=== PATIENT | male | born 1995 | race Caucasian/White ===

== ENCOUNTER 2023-07-20 17:11 | Emergency (ER) | payer OTHER, SELFPAY ==
[2023-07-20] VITALS (7 sets, daily range): BP systolic 118–141; BP diastolic 79–102; PULSE 91–106; RESP 8–24; TEMP 36.8; O2SAT 95–98; BMI 31.7
--- NOTE | 2023-07-20 17:25 | DI.RAD.S_ITS ---
PROCEDURE: XR CHEST 1V INDICATIONS: chest pain TECHNIQUE: One view of the chest was acquired. COMPARISON: None. FINDINGS: Surgical changes and devices: None. Lungs and pleura: Lungs are clear. No pleural effusions or pneumothorax. Mediastinum: Mediastinal contours appear normal. Heart size is normal. Bones and chest wall: No suspicious bony lesions. Overlying soft tissues appear unremarkable. IMPRESSION: No acute cardiopulmonary abnormality is seen. Dictated by: Emily Conde M.D. on 07/20/2023 at 18:27 Approved by: Emily Conde M.D. on 07/20/2023 at 18:27
[2023-07-20] MEDS: ASPIRIN 81 MG CHEW TAB 324 MG PO (17:37)
[2023-07-20 17:43] LABS: Add Manual Diff / Slide Review NO; Basophils Absolute Auto 100 /uL (0-100); Basophils Percent Auto 0.6 % (0-2); Eosinophils Absolute Auto 200 /uL (0-450); Eosinophils Percent Auto 2.1 % (2-4); Hematocrit 44.8 % (41-53); Hemoglobin 15.2 g/dL (13.5-17.5); Lymphocytes Absolute Auto 3500 /uL (1100-4500); Lymphocytes Percent Auto 30.6 % (25-40); Mean Corpuscular HGB Conc 33.9 % (30-36); Mean Corpuscular Hemoglobin 30.5 PG (26-34); Mean Corpuscular Volume 89.9 fL (80-100); Monocytes Absolute Auto 1100 /uL (0-900); Monocytes Percent Auto 9.4 % (3-14); Neutrophils Absolute Auto 6600 /uL (1500-7000); Neutrophils Percent Auto 57.3 % (50-75); Platelet Count 294 X10^3/uL (150-400); Red Blood Cell Count 4.98 X10^6/uL (4.5-5.9); Red Cell Distribution Width 13.6 % (11.6-14.8); White Blood Cell Count 11.5 X10^3/uL (4.5-11.0)
[2023-07-20 17:53] LABS: PTT Partial Thromboplastin Tim 35 SECONDS (25.1-36.5)
[2023-07-20 17:56] LABS: Alanine Aminotransferase 51 IU/L (<50); Albumin 4.7 g/dL (3.5-5.0); Albumin Globulin Ratio 1.3 (1.0-2.8); Alkaline Phosphatase 99 U/L (38-126); Aspartate Aminotransferase 39 IU/L (17-59); BUN Creatinine Ratio 14.5 (6-22); Bilirubin Total 0.6 mg/dL (0.2-1.3); Blood Urea Nitrogen 12 mg/dL (9-20); Calcium 9.5 mg/dL (8.4-10.2); Carbon Dioxide 31 mmol/L (22-32); Chloride 103 mmol/L (98-107); Creatine Kinase 79 U/L (55-170); Estimated Glomerular Filt Rate > 60 mL/min (>60); Globulin 3.5 g/dL (1.7-4.1); Glucose 106 mg/dL (70-100); HEMOLYSIS < 15 (0-50); Lipase 63 U/L (23-300); Magnesium 1.9 mg/dL (1.6-2.3); Potassium 3.9 mmol/L (3.4-5.1); Sodium 140 mmol/L (137-145); Total Protein 8.2 g/dL (6.3-8.2)
[2023-07-20 18:07] LABS: Troponin I < 0.012 ng/mL (0.01-0.034)
--- NOTE | 2023-07-20 19:09 | ED_ITS ---
HPI - Arrhythmia/Palpitations General Chief Complaint: Arrhythmia/Palpitations Stated Complaint: Heart palpitations/High BP Time Seen by Provider: 07/20/23 17:50 Source: patient Mode of arrival: Ambulatory History of Present Illness HPI narrative: Patient is a 28-year-old healthy male who presents today with heart palpitations. He says it happens both at rest and while standing. He has not been dizzy lightheaded or passed out. He denies any sort of shortness of breath. He feels little bit of tightness in his chest. No fever chills or cough. He reports that he drinks 1-2 cups of coffee daily and then sips a [place] throughout the day. He has been doing this a long time. He is currently sinus rhythm on the monitor. Related Data Allergies Allergy/AdvReac Type Severity Reaction Status Date / Time No Known Drug Allergies Allergy Verified 07/20/23 17:21 Patient History Social History Smoking Status: Current every day smoker Smoking Status: Current every day smoker tobacco type: cigarettes alcohol intake frequency: a few times a week Alcohol type: beer, wine and hard liquor Substance Use Type: does not use Exam Initial Vital Signs Initial Vital Signs: Vital Signs Temperature 98.3 F 07/20/23 17:21 Pulse Rate 106 H 07/20/23 17:21 Respiratory Rate 18 07/20/23 17:21 Blood Pressure 133/100 H 07/20/23 17:21 Pulse Oximetry 98 07/20/23 17:21 Oxygen Delivery Method Room Air 07/20/23 17:21 GENERAL: Alert pleasant well-appearing 28-year-old male and in no acute distress. HEENT: Head atraumatic,EOMI, pupils reactive, face symmetric, moist mucous membranes CARDIOVASCULAR: Regular rate and rhythm without murmurs, rubs or gallops. RESPIRATORY: Breath sounds equal bilaterally, no wheezes rales or rhonchi. ABDOMEN: Soft, nontender. Normoactive bowel sounds all 4 quadrants. No guarding or rebound. EXTREMITIES: Normal range of motion, no clubbing or edema. Neurovascularly intact NEUROLOGICAL: Alert and oriented x4.Normal gait and speech. SKIN: Warm, dry, no laceration, no petechiae, no rashes or lesions. Scores HEART Score Heart Score history: Slightly Suspicious Heart Score EKG: Normal Heart Score Age: < 45 years old Heart Score risk factors: No known risk factors Heart Score troponin: < or = to normal limit Heart Score Total: 0 Course Orders Ordered: ED Orders 07/20/23 17:25 XR chest 1V Stat EKG-12 Lead Stat 07/20/23 17:35 Complete Blood Count AUTO DIFF Stat Comprehensive Metabolic Panel Stat Lipase Stat Magnesium Stat PTT Partial Thromboplastin Tomas Stat Prothrombin Time INR Stat Troponin & CK Cardiac Panel Stat 07/20/23 19:19 EKG-12 Lead Stat Discontinued Medications Aspirin (Aspirin 81 Mg Chew Tab) 324 mg PO NOW ONE Stop: 07/20/23 17:26 Last Admin: 07/20/23 17:37 Dose: 324 mg Documented By: HELENA Vital Signs Vital signs: Vital Signs - 8 hr 07/20/23 18:30 07/20/23 18:30 07/20/23 19:00 Pulse Rate 92 H 91 H Respiratory Rate 8 L 14 Blood Pressure 118/81 Pulse Oximetry 95 95 07/20/23 19:00 Pulse Rate Respiratory Rate Blood Pressure 118/79 Pulse Oximetry MDM - Arrhythmia/Palpitations Lab Data 07/20/23 17:35 07/20/23 17:35 Labs: Lab Results 07/20/23 Range/Units 17:35 WBC 11.5 H (4.5-11.0) X10^3/uL RBC 4.98 (4.5-5.9) X10^6/uL Hgb 15.2 (13.5-17.5) g/dL Hct 44.8 (41-53) % MCV 89.9 (80-100) fL MCH 30.5 (26-34) PG MCHC 33.9 (30-36) % RDW 13.6 (11.6-14.8) % Plt Count 294 (150-400) X10^3/uL Neut % (Auto) 57.3 (50-75) % Lymph % (Auto) 30.6 (25-40) % [place] % (Auto) 9.4 (3-14) % Eos % (Auto) 2.1 (2-4) % Baso % (Auto) 0.6 (0-2) % Neut # (Auto) 6600 (3732-5066) /uL Lymph # (Auto) 3500 (9281-8942) /uL [place] # (Auto) 1100 H (0-900) /uL Eos # (Auto) 200 (0-450) /uL Baso # (Auto) 100 (0-100) /uL PT 11.0 (9.4-12.5) SECONDS INR 1.0 (0.9-1.3) APTT 35 (25.1-36.5) SECONDS Sodium 140 (137-145) mmol/L Potassium 3.9 (3.4-5.1) mmol/L Chloride 103 (98-107) mmol/L Carbon Dioxide 31 (22-32) mmol/L BUN 12 (9-20) mg/dL Creatinine 0.83 (0.66-1.25) mg/dL Estimated GFR > 60 (>60) mL/min BUN/Creatinine Ratio 14.5 (6-22) Glucose 106 H (70-100) mg/dL Calcium 9.5 (8.4-10.2) mg/dL Magnesium 1.9 (1.6-2.3) mg/dL Total Bilirubin 0.6 (0.2-1.3) mg/dL AST 39 (17-59) IU/L ALT 51 H (<50) IU/L Alkaline Phosphatase 99 (38-126) U/L Total Creatine Kinase 79 (55-170) U/L Troponin I < 0.012 (0.01-0.034) ng/mL Total Protein 8.2 (6.3-8.2) g/dL Albumin 4.7 (3.5-5.0) g/dL Globulin 3.5 (1.7-4.1) g/dL Albumin/Globulin Ratio 1.3 (1.0-2.8) Lipase 63 (23-300) U/L Imaging Data Chest x-ray: Radiologist's Impresson: PROCEDURE: XR CHEST 1V INDICATIONS: chest pain TECHNIQUE: One view of the chest was acquired. COMPARISON: None. FINDINGS: Surgical changes and devices: None. Lungs and pleura: Lungs are clear. No pleural effusions or pneumothorax. Mediastinum: Mediastinal contours appear normal. Heart size is normal. Bones and chest wall: No suspicious bony lesions. Overlying soft tissues appear unremarkable. IMPRESSION: No acute cardiopulmonary abnormality is seen. Dictated by: Emily Conde M.D. on 07/20/2023 at 18:27 ECG Data Attestation: I personally reviewed and interpreted this ECG as follows: Prior ECG tracings: not available for review Interpretation: Normal sinus rhythm rate 100 OK interval 140 QRS [address] changes mild artifact noted EKG 2. Sinus rhythm rate [address] changes similar to prior MDM Narrative Medical decision making narrative: Patient is a healthy 28-year-old male who presents with palpitations ongoing today. He has not hypoxic. He has not dizzy lightheaded or passing out. He is noted to be mildly tachycardic. My did actually have him stand well hooked up to the monitor heart rate did increase to 117 and then quickly came back down. Work has been reviewed and overall reassuring Chest x-ray has been reviewed no abnormality EKGs reviewed by myself without any ischemic changes or rhythm changes Discussed with patient he needs a Holter monitor. We discussed trying to decrease his caffeine intake see if it helps and to stay hydrated. Discussed when to return to ED Discharge Plan Departure Patient Disposition: Home Clinical Impression: Palpitations Instructions: DI for Palpitations Activity Restrictions/Additional Instructions: *You have been diagnosed with palpitations *What to do: At this time blood work is overall reassuring. I do recommend that you cut back your caffeine intake to see if that helps at all. You do need a Holter monitor which [place] *Continue to take medications as directed *Follow up with your primary care provider in 2-3 days or call [phone] *Return to ER if you should have increasing palpitations persistent heart rate greater than 130 dizziness lightheadedness chest pain, passing out [or] any new, worsening or concerning symptoms Referrals: ProviderNirali [Primary Care Provider] - Stand Alone Forms: Patient Portal/API
== END 2023-07-20 19:37 | disposition home or self-care (01) ==
PROVIDERS: Emergency Medicine; Emergency Provider Emergency Medicine
DX: R00.2 Palpitations (principal); R07.9 Chest pain, unspecified
CPT/HCPCS: 36415; 71045; 80053; 82550; 83690; 83735; 84484; 85025; 85610; 85730; 93005; 93010; 99284